=== PATIENT | male | born 1960 | race Caucasian/White ===

== ENCOUNTER 2020-02-13 12:51 | Emergency (ER) | payer BC, SELFPAY ==
[2020-02-13 12:54] VITALS: BP 174/65; PULSE 77; RESP 20; TEMP 36.7; O2SAT 97
--- NOTE | 2020-02-13 13:37 | ED.MALEGU ---
HPI - Male Genitourinary General Chief complaint: Urogenital-Male Stated complaint: from urgent care, leaking catheter Time Seen by Provider: 02/13/20 13:28 Source: patient Mode of arrival: ambulatory Limitations: no limitations History of Present Illness HPI Narrative: This is a 59-year-old male who presents the emergency department for suprapubic catheter problems. Reports he has very little out of the suprapubic cath since last night. Reports he has an appointment to see Dr. Lizama in clinic in 1 week. Reports some lower abdominal pressure. Denies fever, nausea, vomiting, hematuria. Related Data Home Medications Medication Instructions Recorded Confirmed acetaminophen [Tylenol Extra 1,000 mg PO Q6H PRN 02/13/20 Strength] amlodipine 10 mg PO DAILY 02/13/20 apixaban [Eliquis] 5 mg PO BID 02/13/20 digoxin 125 mcg PO DAILY 02/13/20 famotidine 20 mg PO DAILY 02/13/20 ferrous gluconate 324 mg PO EVERY OTHER DAY 02/13/20 glipizide 5 mg PO DAILY 02/13/20 hydrochlorothiazide 12.5 mg PO DAILY 02/13/20 insulin degludec [Tresiba 100 unit SUBCUT DAILY 02/13/20 FlexTouch U-100] metformin 1,000 mg PO DAILY 02/13/20 metoprolol tartrate 25 mg PO BID 02/13/20 nitrofurantoin macrocrystal 100 mg PO DAILY 02/13/20 rosuvastatin 10 mg PO HS 02/13/20 Allergies Allergy/AdvReac Type Severity Reaction Status Date / Time No Known Allergies Allergy Mild Unverified 02/13/20 13:04 Review of Systems Review of Systems: Narrative: CONSTITUTIONAL: Denies fever GASTROINTESTINAL: Reports abdominal pain. Denies nausea, vomiting, or diarrhea. GENITOURINARY: Denies hematuria. All systems reviewed & are unremarkable except as noted in HPI and below PMFSH Past Medical History Medical History (Updated 02/13/20 @ 16:09 by Sandee Figueroa PA-C) History of diabetes mellitus History of hypertension Exam Narrative: Exam Narrative: GENERAL: Well-appearing, obese, and in no acute distress. HEAD: Normocephalic, atraumatic. EYES: EOMI. CHEST: Clear to auscultation. No respiratory distress. No wheezes rales or rhonchi HEART: Regular rate and rhythm. No murmur heard. Normal peripheral pulses. ABDOMEN: Soft, nontender, nondistended, normal active bowel sounds. EXTREMITIES: Normal range of motion. No edema. SKIN: Warm, dry. Chronic skin changes of the pannus with moist skin folds that are red NEURO: No focal deficits. Alert and oriented x3. PSYCH: Normal mood and affect Course Consultations Consultation #1: Patient will be started on oral antibiotics and is to follow-up with his urologist in clinic. Spoke with on-call urology Dr. Hart who agrees. Date: 02/13/20 Time: 16:17 Vital Signs Vital signs: Vital Signs Temperature 98.0 F 02/13/20 12:54 Pulse Rate 77 02/13/20 12:54 Respiratory Rate 20 02/13/20 12:54 Blood Pressure 174/65 H 02/13/20 12:54 Pulse Oximetry 97 02/13/20 12:54 Temperature 98.0 F 02/13/20 12:54 Pulse Rate 77 02/13/20 12:54 Respiratory Rate 20 02/13/20 12:54 Blood Pressure 174/65 H 02/13/20 12:54 Pulse Oximetry 97 02/13/20 12:54 Procedures Catheter Insertion (Urinary) Urinary Catheter 1: Date of insertion: 02/13/20 Time of insertion: 16:17 Reason for placing: Yes Reason for placing indwelling catheter: Other (patient has chronic suprapubic catheter due to spinal cord injury) Patient has the following: history of catheter associated urinary tract infection Bladder scan/ultrasound used before catheterization: No Antiseptic solution prep: Povidone-Iodine Topical anesthesia used: No Catheter type/location: Suprapubic Size (Telugu): 20 Catheter balloon size (mL): 10 Results: successfully catheterized-immediate flow Procedure performed: without complications Comment: Catheter successfully placed by Dr. Workman MDM - Male Genitourinary MDM Narrative Medical decision making narrative: Lynn
[2020-02-13 14:11] LABS: Basophils Absolute Auto 0.1 K/mm3 (0.0-0.1); Basophils Percent Auto 0.5 % (0.2-1.2); Eosinophils Percent Auto 0.3 % (0-4.4); Hemoglobin 15.4 g/dL (14.0-18.0); Immature Granulocyte Absolute 0.16 K/mm3 (0.00-0.031); Immature Granulocyte Percent A 1.3 % (0-0.5); Lymphocytes Absolute Auto 1.32 K/mm3 (0.9-3.2); Lymphocytes Percent Auto 11.1 % (18.3-44.2); Mean Corpuscular HGB Conc 32.8 g/dl (32-36); Mean Corpuscular Hemoglobin 31.8 pg (26-34); Mean Corpuscular Volume 97.1 fl (80-100); Mean Platelet Volume 10.4 fl (7.4-10.4); Monocytes Absolute Auto 0.5 K/mm3 (0.1-0.6); Neutrophils Absolute Auto 9.9 K/mm3 (1.3-6.7); Neutrophils Percent Auto 82.8 % (45.5-73.1); Platelet Count Result 178 k/mm3 (150-375); Red Blood Count 4.84 M/mm3 (4.6-6.20); Red Cell Distribution Width 15.2 % (11.5-14.5); White Blood Count 11.9 K/mm3 (4.5-10.0)
[2020-02-13 14:20] LABS: Blood Urea Nitrogen 27 mg/dL (9-20); Calcium 8.8 mg/dL (8.4-10.2); Carbon Dioxide 29 mmol/L (22-30); Chloride 100 mmol/L (98-107); Estimated CRCL calculation 127 ml/min; Estimated Glomerular Filt Rate > 60; Glucose 138 mg/dL (75-110); Sodium 135 mmol/L (137-145)
[2020-02-13 14:29] LABS: Lactic Acid Reflex 1.4 mmol/L (0.7-2.1)
--- NOTE | 2020-02-13 15:05 | PC.NURSE ---
Suprapubic catheter placed per Dr. Workman. Placed 20 Fr laird catheter with 10 cc bulb. Patient tolerated well.
[2020-02-13 15:13] LABS: Add Urine Microscopic? YES; Appearance Urine Cloudy (Clear); Bacteria Urine Trace /hpf; Bilirubin Urine Negative (Negative); Blood Urine 2+ (Negative); Color Urine Yellow (Yellow); Glucose Urine UA Negative (Negative); Ketones Urine Negative (Negative); Leukocyte Esterase Ur 3+ LEU/UL (Negative); Mucus Urine Rare /lpf; Nitrate Urine Positive (Negative); Protein Urine 2+ mg/dL (Negative); Specific Grav Ur 1.012 (1.001-1.035); Squamous Epithelial Cell Urine Rare /hpf (Few); Urobilinogen Urine Negative mg/dL (<2.0); WBC Urine 21-30 /hpf
== END 2020-02-13 14:42 | disposition home or self-care (01) ==
PROVIDERS: Physician Assistant; Emergency Provider Emergency Medicine
DX: N30.00 Acute cystitis without hematuria (principal); L30.4 Erythema intertrigo; E11.9 Type 2 diabetes mellitus without complications; Z79.84 Long term (current) use of oral hypoglycemic drugs; Z79.01 Long term (current) use of anticoagulants; I10 Essential (primary) hypertension; T14.8XXS Other injury of unspecified body region, sequela; X58.XXXS Exposure to other specified factors, sequela
CPT/HCPCS: 36415; 51705; 80048; 81001; 83605; 85025; 87077; 87086; 87088; 87186; 99283